=== PATIENT | male | born 2000 | race Caucasian/White ===

== ENCOUNTER 2021-06-20 02:36 | Emergency (ER) | payer BC, SELFPAY ==
[2021-06-20] VITALS (11 sets, daily range): BP systolic 108–126; BP diastolic 56–67; PULSE 44–83; RESP 11–24; TEMP 36.4; O2SAT 99–100
--- NOTE | ~2021-06-20 | CT_ITS ---
EXAMINATION: CTA chest PE protocol DATE: 06/20/2021 05:34 INDICATION: Hemoptysis, worsening shortness of breath TECHNIQUE: Computed tomography angiography (CTA) of the chest was performed with 100 mL Omnipaque-350 intravenous contrast timed to evaluate the pulmonary arteries. Coronal maximum intensity projection 3D-reconstructions were created by the technologist. Automated exposure control and iterative reconst ruction technique were employed. Exam dose: 254.05 mGy-cm total exam DLP. COMPARISON: None. FINDINGS: There is diagnostic contrast enhancement of the pulmonary arteries and no evidence of pulmo nary embolism. No thoracic aortic aneurysm or dissection. Normal heart size. No pericardial or pleural effusion. Azygos lobe, normal variant. There is patchy nodular infiltrate in the right upper lobe and minimal focal scattered infiltrates in the left lower lobe. There is middle lobe discoid atelectasis or scarring. No pleural effusion or pneumothorax. Included skeletal structures are unremarkable. IMPRESSION: No evidence of pulmonary embolism Patchy right upper lobe and scattered minimal patchy left lower lobe infiltrates consistent with mild bilateral multifocal pneumonia Reviewed, dictated and finalized at [facility] Reviewed, dictated and finalized at [facility] IMPRESSION: No evidence of pulmonary embolism Patchy right upper lobe and scattered minimal patchy left lower lobe infiltrate s consistent with mild bilateral multifocal pneumonia
[2021-06-20 04:49] LABS: Basophils Percent Auto 0.2 % (0.2-1.2); Eosinophils Absolute Auto 0.1 K/mm3 (0-0.3); Eosinophils Percent Auto 0.7 % (0-4.4); Hematocrit 40.3 % (42.0-52.0); Hemoglobin 14.1 g/dL (14.0-18.0); Immature Granulocyte Absolute 0.02 K/mm3 (0.00-0.031); Immature Granulocyte Percent A 0.2 % (0-0.5); Lymphocytes Absolute Auto 1.99 K/mm3 (0.9-3.2); Lymphocytes Percent Auto 24.8 % (18.3-44.2); Mean Corpuscular Volume 91.6 fl (80-100); Mean Platelet Volume 10.4 fl (7.4-10.4); Monocytes Absolute Auto 0.5 K/mm3 (0.1-0.6); Monocytes Percent Auto 6.7 % (2.6-8.5); Neutrophils Absolute Auto 5.4 K/mm3 (1.3-6.7); Neutrophils Percent Auto 67.4 % (45.5-73.1); Platelet Count Result 218 k/mm3 (150-375); Red Cell Distribution Width 12.3 % (11.5-14.5)
[2021-06-20] MEDS: SODIUM CHLORIDE 0.9% IV 1,000 ML 999 ML IV CONT (04:51)
[2021-06-20] MEDS: ONDANSETRON INJ 4 MG/2 ML VIAL IV PUSH (04:52)
[2021-06-20 05:02] LABS: Alanine Aminotransferase 17 U/L (4-50); Albumin Level 4.1 g/dL (3.5-5.1); Alkaline Phosphatase 78 U/L (38-126); Anion Gap 5 mmol/L (8-16); Aspartate Amino Transferase 29 U/L (17-59); Bilirubin,Total 0.4 mg/dL (0.2-1.3); Blood Urea Nitrogen 12 mg/dL (9-20); Calcium 9.3 mg/dL (8.4-10.2); Carbon Dioxide 33 mmol/L (22-30); Chloride 100 mmol/L (98-107); Estimated CRCL calculation 120 ml/min; Estimated Glomerular Filt Rate > 60; Glucose 108 mg/dL (65-110); Lipase 65 U/L (23-300); Potassium 3.7 mmol/L (3.4-5.0); Sodium 138 mmol/L (137-145)
--- NOTE | 2021-06-20 05:44 | ED.NAVMDI ---
HPI - Nausea/Vomiting/Diarrhea General Chief complaint: Nausea/Vomiting/Diarrhea Stated complaint: covid, throwing up blood Time Seen by Provider: 06/20/21 04:16 Source: patient History of Present Illness HPI Narrative: Patient presents with nausea vomiting and coughing up blood. Patient reports he was diagnosed with Covid approximately 1 week ago and since then has had worsening cough shortness of breath his main consistent he is also developed nausea and vomiting. The past day or so he has noted episodes of coughing up blood with his sputum he was concerned so he wanted come to the ER for evaluation. Reports mild lightheadedness denies focal areas of chest pain or abdominal pain, reports intermittent fevers Related Data Allergies Allergy/AdvReac Type Severity Reaction Status Date / Time No Known Allergies Allergy Verified 06/20/21 03:58 Review of Systems Review of Systems: CONSTITUTIONAL: Subjective fevers EYES: Denies visual changes, redness, or discharge. ENT: Denies rhinorrhea, congestion, sore throat, or otalgia. CARDIOVASCULAR: Denies chest pain, palpitations, or edema. RESPIRATORY: Reports cough, shortness of breath, and hemoptysis GASTROINTESTINAL: Reports nausea and vomiting GENITOURINARY: Denies dysuria or hematuria. SKIN: Denies rash or itching. MUSCULOSKELETAL: Denies back pain, joint pain, or myalgia. NEUROLOGIC: Denies headache, numbness, dizziness, or weakness. PSYCHIATRIC: Denies anxiety or depression. All systems reviewed & are unremarkable except as noted in HPI and below Exam Narrative: GENERAL: Well-appearing, well-nourished, and in no acute distress. HEAD: Normocephalic, atraumatic. EYES: PERRLA and EOMI. ENT: Nares clear, no rhinorrhea or epistaxis. Mucous membranes moist. NECK: Supple. No masses. No JVD CHEST: Clear to auscultation. No respiratory distress. No wheezes rales or rhonchi HEART: Regular rate and rhythm. No murmur heard. Normal peripheral pulses. ABDOMEN: Soft, nontender, nondistended, normal active bowel sounds. EXTREMITIES: Normal range of motion. No edema. SKIN: Warm, dry, no rash. NEURO: No focal deficits. Alert and oriented x3. PSYCH: Normal mood and affect. Course Reevaluation(s) Reevaluation #1: Patient is resting comfortably reports feeling improved results and plan reviewed with patient. Patient comfortable outpatient plan. Date: 06/20/21 Time: 07:48 Vital Signs Vital signs: Vital Signs Temperature 36.4 C 06/20/21 03:00 Pulse Rate 83 06/20/21 03:00 Respiratory Rate 17 06/20/21 03:00 Blood Pressure 116/61 06/20/21 03:00 Pulse Oximetry 100 06/20/21 03:00 Temperature 36.4 C 06/20/21 03:00 Pulse Rate 49 L 06/20/21 07:01 Respiratory Rate 14 06/20/21 07:01 Blood Pressure 126/60 06/20/21 07:01 Pulse Oximetry 100 06/20/21 07:01 MDM - Nausea/Vomiting/Diarrhea MDM Narrative Medical decision making narrative: H&P as above, vss, pt looks clinically well, exam reassuring, labs clinically unremarkable, img without evidence of PE, additional labs/img considered, symptomatic relief available as needed, on reevaluation pt continues to looks clinically well. Suspect Covid pneumonia, dns severe sepsis, severe dehydration, PE. plan to tx/monitor as op w/ pcm f/u findings/plan discussed with pt, pt agree/comfortable with plan, return precautions given Lab Data Result diagrams: 06/20/21 04:38 06/20/21 04:38 Labs: Lab Results 06/20/21 06/20/21 06/20/21 Range/Units 04:38 04:38 05:45 WBC 8.0 (4.5-10.0) K/mm3 RBC 4.40 L (4.6-6.20) M/mm3 Hgb 14.1 (14.0-18.0) g/dL Hct 40.3 L (42.0-52.0) % MCV 91.6 (80-100) fl MCH 32.0 (26-34) pg MCHC 35.0 (32-36) g/dl RDW 12.3 (11.5-14.5) % Plt Count 218 (150-375) k/mm3 MPV 10.4 (7.4-10.4) fl Immature Gran % (Auto) 0.2 (0-0.5) % Neut % (Auto) 67.4 (45.5-73.1) % Lymph % (Auto) 24.8 (18.3-44.2) % [place] % (Auto) 6.7 (2.6-8
[2021-06-20 05:59] LABS: Add Urine Microscopic? YES; Appearance Urine Clear (Clear); Bilirubin Urine Negative (Negative); Blood Urine Negative (Negative); Color Urine Straw (Yellow); Glucose Urine UA Negative (Negative); Ketones Urine Negative (Negative); Leukocyte Esterase Ur 2+ LEU/UL (Negative); Nitrate Urine Negative (Negative); Protein Urine Negative (Negative); RBC Urine 0-2 /hpf (0-2); Specific Grav Ur 1.006 (1.001-1.035); Urobilinogen Urine Negative mg/dL (<2.0); WBC Urine 16-20 /hpf
== END 2021-06-20 08:00 | disposition home or self-care (01) ==
PROVIDERS: Emergency Provider Emergency Medicine; PCP Pediatrics
DX: U07.1 COVID-19 (principal); J12.82 Pneumonia due to coronavirus disease 2019; R04.2 Hemoptysis; R11.2 Nausea with vomiting, unspecified
CPT/HCPCS: 36415; 71275; 80053; 81001; 83690; 85025; 87086; 96361; 96374; 99284; J2405; J7030; Q9967

== ENCOUNTER 2024-04-10 08:29 | Emergency (ER) | payer BC, SELFPAY ==
[2024-04-10 08:42] VITALS: BP 123/62; PULSE 66; RESP 16; TEMP 36.9; O2SAT 99
--- NOTE | 2024-04-10 08:53 | ED.BACK ---
HPI - Back Pain/Injury General Chief Complaint: Abdominal Pain Stated Complaint: right side pain Time Seen by Provider: 04/10/24 08:47 Source: patient and RN notes reviewed Mode of arrival: ambulatory Limitations: no limitations History of Present Illness HPI Narrative: Patient presents today complaining of left low back pain that started early this morning. Patient helped a friend move all day yesterday, carrying heavy objects. Denies numbness or tingling in the legs or genitalia. Denies loss of bowel or bladder control. Currently rates his pain 6/10, which increases with movement. He has tried no treatment prior to arrival. Related Data Allergies Allergy/AdvReac Type Severity Reaction Status Date / Time No Known Allergies Allergy Verified 04/10/24 08:40 Review of Systems Review of Systems: CONSTITUTIONAL: Denies body aches, fever, chills, or sweats. EYES: Denies visual changes, redness, or discharge. ENT: Denies rhinorrhea, congestion, sore throat, or otalgia. CARDIOVASCULAR: Denies chest pain, palpitations, or edema. RESPIRATORY: Denies cough or dyspnea. GASTROINTESTINAL: Denies abdominal pain, nausea, vomiting, or diarrhea. GENITOURINARY: Denies dysuria or hematuria. SKIN: Denies rash, itching, or wounds. MUSCULOSKELETAL: Denies joint pain, or myalgia.+low back pain NEUROLOGIC: Denies headache, numbness, tingling, or weakness. PSYCH: Denies depression or anxiety. PMFSH Comments At time of signature, I have reviewed and agree with nursing past medical, surgical, social and family history unless otherwise noted. Please see nursing chart for further information. There is no relevant family history pertinent to the presenting complaint Exam Narrative: GENERAL: Well-appearing, well-nourished, and in no acute distress. HEAD: Normocephalic, atraumatic. EYES: EOMI. No redness or drainage. Conjunctivae normal. ENT: Mucous membranes pink and moist. NECK: Normal AROM. CHEST: No respiratory distress. MUSCULOSKELETAL: No bony tenderness of the spine. Right low back is nontender to palpation. Patient localizes his pain to the right lower lumbar paraspinal muscles which is exacerbated with flexion, left lateral bending, and bilateral twisting. Distal sensation intact. Capillary refill normal. Saddle sensation intact. Dorsiflexion and plantar flexion equal and strong against resistance. Patellar reflexes 2+ bilaterally EXTREMITIES: Normal range of motion. No edema. SKIN: Warm, dry, no rash. Capillary refill normal. Normal skin turgor. NEURO: No focal deficits. Alert and oriented x3. Gait steady. PSYCH: Normal affect. No signs of depression or anxiety. Course Course Level of Care: Express Care Visit Vital Signs Vital signs: Vital Signs Temperature 98.5 F 04/10/24 08:42 Pulse Rate 66 04/10/24 08:42 Respiratory Rate 16 04/10/24 08:42 Blood Pressure 123/62 04/10/24 08:42 Pulse Oximetry 99 04/10/24 08:42 Oxygen Delivery Room Air 04/10/24 08:42 Temperature 98.5 F 04/10/24 08:42 Pulse Rate 66 04/10/24 08:42 Respiratory Rate 16 04/10/24 08:42 Blood Pressure 123/62 04/10/24 08:42 Pulse Oximetry 99 04/10/24 08:42 Oxygen Delivery Room Air 04/10/24 08:42 reviewed MDM - Back Pain/Injury MDM Narrative Medical decision making narrative: Patient symptoms are likely due to a low back strain. Rx for flexeril sent to pharmacy. Recommend taking NSAID in addition. Anticipatory guidance given. Differential Diagnosis Differential diagnosis: Likely lumbar radiculopathy, sciatica and strain of lumbar region Critical Care Time Critical Care Time Critical Care Time: No Discharge Plan Discharge Clinical Impression: Low back strain Patient Disposition: Home, Self-Care Condition: Stable Instructions: Low Back Strain (ED) Additional Instructions: Please take the Flexeril as prescribed. Do not drive within 8 hours of taking the Flexeril as it can don
== END 2024-04-10 08:58 | disposition home or self-care (01) ==
PROVIDERS: Emergency Provider Nurse Practitioner
DX: S39.012A Strain of muscle, fascia and tendon of lower back, initial encounter (principal); X58.XXXA Exposure to other specified factors, initial encounter
CPT/HCPCS: 99213; G0463

== ENCOUNTER 2024-07-25 17:00 | Emergency (ER) | payer BC, SELFPAY ==
--- NOTE | 2024-07-25 17:03 | ED_ITS ---
HPI - Male Genitourinary General Chief complaint: Urogenital-Male Stated complaint: Std Test Time Seen by Provider: 07/25/24 17:00 Source: patient Mode of arrival: ambulatory Limitations: no limitations History of Present Illness HPI Narrative: Patient is a 24-year-old male who presents for STD testing. Was told by a partner that they have chlamydia. Patient has no signs or symptoms of any infection. Denies any fever, chills, nausea, vomiting, diarrhea, discharge, testicular swelling, changes in urinary patterns. Related Data Home Medications Medication Instructions Recorded Confirmed No Home Medications 07/25/24 07/25/24 Allergies Allergy/AdvReac Type Severity Reaction Status Date / Time No Known Allergies Allergy Verified 07/25/24 17:23 Review of Systems Review of Systems: All systems reviewed & are unremarkable except as noted in HPI and below Constitutional: Constitutional: Denies chills, Denies fever(s), Denies headache(s), Denies malaise and Denies weakness Eyes: Eyes: Denies change in vision, Denies eye discharge and Denies irritation ENT: Denies otalgia, Denies headache(s), Denies nasal congestion, Denies nasal discharge, Denies sinus pain and Denies sore throat Cardiovascular: Cardiovascular: Denies chest pain, Denies edema, Denies palpitations and Denies dyspnea Respiratory: Respiratory: Denies cough and Denies dyspnea Gastrointestinal: Gastrointestinal: Denies abdominal pain, Denies diarrhea, Denies nausea and Denies vomiting Genitourinary: Genitourinary: Denies hematuria, Denies dysuria, Denies flank pain, Denies nocturia, Denies painful ejaculations, Denies penile discharge, Denies scrotal swelling, Denies testicular pain and Denies urinary urgency Musculoskeletal: Musculoskeletal: Denies back pain and Denies numbness Integumentary/Breasts: Skin/Breast: Denies pruritus and Denies rash Neurologic: Denies headache(s), Denies numbness and Denies weakness Psychiatric: Psychiatric: Reports no additional psychiatric complaints Endocrine: Endocrine: Denies palpitations PMFSH Comments At time of signature, agree with nursing past medical, surgical, social and family history. There is no relevant family history pertinent to the presenting complaint. Exam Const: General: cooperative, healthy appearing, comfortable, no acute distress and well nourished Nutritional Appearance: well nourished Orientation/consciousness: patient oriented x3 HENMT: Head: normocephalic and atraumatic Ears: external ears normal Face/Nose/Sinus: Normal external nose present, Normal nares present and normal facial exam Face and sinus: normal facial exam Eyes: General: appearance normal, both eyes and all related structures Pupils: Equal, round and reactive pupils present EOM: EOMs intact bilaterally Neck: Neck: normal visual inspection, full ROM and supple Chest: Chest palpation & inspection: normal inspection of the chest Resp: Effort & Inspection: normal respiratory effort and able to speak in complete sentences Cardio: Rate: regular rate Rhythm: regular rhythm GI: Inspection: normal to inspection GI Palp: No abdominal tenderness and Yes Soft to palpation : General: Yes no CVA tenderness Other: Defer exam Back/Spine/Pelvis: Back: no CVA tenderness Skin: General skin exam: normal color and no rashes or lesions noted Neuro: General: patient oriented x3 and moves all extremities Cranial nerves: Yes Equal, round and reactive pupils present Extrem: General: normal to inspection and full ROM Psych: Appearance: grossly normal and well kempt Course Course Emergency Course: Patient is aware of diagnosis, understands and agrees to treatment plan. Anticipatory guidance given. Patient agrees to follow-up as directed and is aware of reasons to seek care at the emergency department. Portions of this record may have been created with voice recognition software Level of Care: Express Care Visit Vital Signs Vital signs: Reviewed MDM - Male Genitourinary MDM Narrative Medical decision making narrative: Discussed treatment options with patient. Patient states he would like to wait for results prior to treatment. Exam findings show no acute concerns or changes; patient is non-toxic appearing and is in no distress.? Patient is appropriate for outpatient treatment and follow-up. Discharge instructions reviewed with patient, as well as provided in writing per nursing staff. The instructions also include specific and strict return/GO TO THE ER as well as f/u information. All questions have been answered, and the patient deny any further questions with discharge and discharge plan. Medical Records Attestation: I reviewed the patient's medical records. Discharge Plan Discharge Clinical Impression: Exposure to STD Patient Disposition: Home, Self-Care Condition: Stable Instructions: Sexually Transmitted Diseases (ED) Additional Instructions: You have been tested for potential gonorrhea, chlamydia, and trichomoniasis today. You will receive a phone call in 1-2 days with any positive results of today's testing. It is very important that you avoid unprotected intercourse for 7 days and until your partner(s) have been treated. Please encourage your partner(s) to seek testing and treatment. When you have been exposed to sexually transmitted infections, it is important that you seek comprehensive testing, since we do not provide testing for all sexually transmitted infections. Some infections can have no symptoms, but cause serious health problems. Contact your health care provider or report to the emergency department if: ? You have genital swelling or pain, or unusual bleeding. ? You have joint pain, rash, swollen lymph nodes or night sweats. ? You are severe abdominal pain. ? You have a fever. ? Symptoms do not go away or they get worse even after treatment. ? You have bleeding or pain during sex. Prescriptions: No Action No Home Medications Follow-up/Referrals: PHYSICIAN,[facility] HYDRAULICKER [Primary Care Provider] - Flakito Courtney MD [Physician] - 3 Days Time of Disposition: 17:26
[2024-07-25 17:04] VITALS: BP 116/81; PULSE 76; RESP 16; TEMP 36.8; O2SAT 98
[2024-07-25 20:23] LABS: Trichomonas Vag PCR NOT DETECTED (NOT DETECTE)
[2024-07-25 20:45] LABS: Chlamydia trachomatis NOT DETECTED (NOT DETECTE); Neisseria gonorrhoeae PCR NOT DETECTED (NOT DETECTE)
== END 2024-07-25 17:27 | disposition home or self-care (01) ==
PROVIDERS: Emergency Provider Nurse Practitioner Family
DX: Z20.2 Contact with and (suspected) exposure to infections with a predominantly sexual mode of transmission (principal)
CPT/HCPCS: 87491; 87591; 87661; 99213; G0463

== ENCOUNTER 2025-05-26 08:12 | Emergency (ER) | payer BC, SELFPAY ==
[2025-05-26 08:23] VITALS: BP 115/64; PULSE 56; RESP 16; TEMP 35.9; O2SAT 100
--- NOTE | 2025-05-26 09:07 | ED.MALEGU ---
HPI - Male Genitourinary General Chief complaint: Urogenital-Male Stated complaint: RASH & STD Time Seen by Provider: 05/26/25 08:45 Source: patient and RN notes reviewed Mode of arrival: ambulatory Limitations: no limitations History of Present Illness HPI Narrative: 25-year-old male presents Express Care complaining of rash to his pubis area. Patient said it has been going to the last week. Patient also noticed a couple bumps on his penis. Patient reports he does shave pubic region. Patient reports being sexually active but reports he has protected sex. Patient denies any penile discharge, dysuria, testicular pain or swelling, fevers, abdominal pain, nausea vomiting, or any symptoms. Patient denies any improved his or pain to the rash. Patient has been trying topical antibiotic ointment without relief. Related Data Allergies Allergy/AdvReac Type Severity Reaction Status Date / Time No Known Allergies Allergy Verified 05/26/25 08:34 Review of Systems Review of Systems: CONSTITUTIONAL: Denies fever, chills, or sweats. EYES: Denies visual changes, redness, or discharge. ENT: Denies rhinorrhea, congestion, sore throat, or otalgia. CARDIOVASCULAR: Denies chest pain, palpitations, or edema. RESPIRATORY: Denies cough or dyspnea. GASTROINTESTINAL: Denies abdominal pain, nausea, vomiting, or diarrhea. GENITOURINARY: Denies dysuria, penile discharge, testicular pain, testicular swelling, scrotal pain, scrotal swelling, or hematuria. SKIN: Positive for rash. Negative for itching. MUSCULOSKELETAL: Denies back pain, joint pain, or myalgia. NEUROLOGIC: Denies headache, numbness, or weakness. PSYCHIATRIC: Denies anxiety or depression. All other systems reviewed are negative, except as documented in HPI. PMFSH Comments At the time of my signature, I reviewed and agree with the nursing past medical, surgical, social, and family history. There is no relevant family history pertinent to the patient complaint. Exam Narrative: GENERAL: This is a well-nourished, well-developed adult, in no apparent distress. They are non ill-appearing, nontoxic appearing. HEAD: normocephalic, atraumatic. EYES: Sclera clear/white. Conjunctiva normal. Vision is grossly intact. Extraocular movements intact EARS: External ears normal, Hearing grossly intact. NOSE: External nose normal THROAT: Mucous membranes moist, NECK: Neck supple, CARDIOVASCULAR: Regular rate and rhythm RESPIRATORY: Respiratory rate normal, respiratory effort nonlabored, no respiratory distress SKIN: Erythematous macular papular/pustular lesions scattered throughout the patient's pelvis, small circular papular lesions to the proximal penis. No chancre or sores. Lesions appear scaly and crusty. No exudate, no area of fluctuance, no induration. Lesions are not group. External penis otherwise normal. Normal testes, normal scrotum. No penile discharge. NEURO: awake, alert, and oriented to person, place and time. There were no obvious focal neurologic abnormalities. EXTREMITIES: No joint tenderness, effusion, or edema noted. Course Course Emergency Course: Portions of this record may have been created with voice recognition software Level of Care: Express Care Visit Vital Signs Vital signs: Vital Signs Temperature 96.7 F L 05/26/25 08:23 Pulse Rate 56 L 05/26/25 08:23 Respiratory Rate 16 05/26/25 08:23 Blood Pressure 115/64 05/26/25 08:23 Pulse Oximetry 100 05/26/25 08:23 Temperature 96.7 F L 05/26/25 08:23 Pulse Rate 56 L 05/26/25 08:23 Respiratory Rate 16 05/26/25 08:23 Blood Pressure 115/64 05/26/25 08:23 Pulse Oximetry 100 05/26/25 08:23 Reviewed MDM - Male Genitourinary MDM Narrative Medical decision making narrative: Patient requesting STD testing. Patient is asymptomatic. Chlamydia, gonorrhea, Trichomonas is pending. Will await treatment until results. The patient likely has impetigo for folliculitis. Low suspicion for STI causes rash. Advised patient to go to the health department for further STD testing. Will send a prescription mupirocin ointment and cephalexin. Discussed physical exam findings. Advised supportive measures and signs/symptoms to go to the ER. Pt is appropriate for outpt treatment and f/u. Differential Diagnosis Differential diagnosis: Likely urinary tract infection, urethritis, genital herpes simplex and other (Syphilis, impetigo, folliculitis, cellulitis, eczema) Critical Care Time Critical Care Time Critical Care Time: No Discharge Plan Discharge Clinical Impression: Folliculitis Patient Disposition: Home Condition: Stable Instructions: Antibiotic Form, Folliculitis (ED) Additional Instructions: Apply the mupirocin ointment as directed. Take cephalexin as directed. Avoid scratching or picking at the area. Wash the area daily with mild soap and water. You will be contacted of your results of your chlamydia, Trichomonas, gonorrhea once they have resulted. He will treat with appropriate antibiotics if anything comes positive. Please go to the health department for further STI testing. Follow-up with PCP in 3-5 days. If you develop abdominal pain, fevers, nausea, vomiting, worsening redness, swelling, drainage or any serious concerns please go to the ER immediately. Patient Language: Romansh Prescriptions: New cephalexin 500 mg capsule 500 mg PO Q6H 7 Days Qty: 28 0RF mupirocin calcium 2 % cream 1 applic topical BID 7 Days Qty: 30 0RF Follow-up/Referrals: PHYSICIAN,GEOMETRY TEACHER [Primary Care Provider, Internal Medicine] Time of Disposition: 08:59
[2025-05-26 19:24] LABS: Trichomonas Vag PCR NOT DETECTED (NOT DETECTE)
== END 2025-05-26 09:05 | disposition home or self-care (01) ==
DX: L73.9 Follicular disorder, unspecified (principal); Z11.3 Encounter for screening for infections with a predominantly sexual mode of transmission
CPT/HCPCS: 87491; 87591; 87661; 99213; G0463